=== PATIENT | female | born 1935 | race Caucasian/White ===

== ENCOUNTER 2018-03-10 08:09 | Inpatient (IN) | payer MEDICARE, BC ==
[~2018-03-10] VITALS: Ht 165.1 cm; Wt 78.6 kg
[~2018-03-10 08:09] MED LIST: ASCO500C PO; CALC-77 PO; DESL5TAB PO; DICL100T PO; MELA1TAB SL; MELO15TA23 PO; MULT-18 PO; OMEG-57 PO; POLY255P11 PO
[2018-03-10] MEDS ORDERED: IPRATRPIUM/ALBUTEROL 0.5/2.5MG 3 ML NEBU. NEB ONE (08:30)
[2018-03-10 08:53] LABS: BASO # 0.1 x10^3/uL (0.0-0.2); BASO % 1 % (0-3); EOS # 0.8 x10^3/uL (0.0-0.7); EOS % 9 % (0-3); HEMATOCRIT 36.1 % (36.0-47.0); HEMOGLOBIN 11.6 g/dL (12.0-15.5); LYMPH # 1.6 x10^3/uL (1.0-4.8); LYMPH % 19 % (24-48); MEAN CORPUSCULAR HEMOGLOBIN 28 pg (25-35); MEAN CORPUSCULAR HGB CONC 32 g/dL (31-37); MEAN CORPUSCULAR VOLUME 87 fL (79-100); MONO # 0.9 x10^3/uL (0.0-1.1); MONO % 11 % (0-9); NEUT % 60 % (31-73); PLATELET COUNT 330 x10^3/uL (140-400); RED BLOOD COUNT 4.16 x10^6/uL (3.50-5.40); WHITE BLOOD COUNT 8.5 x10^3/uL (4.0-11.0)
--- NOTE | 2018-03-10 09:03 | PHYS DOC ---
Past History Past Medical History: No Pertinent History Past Surgical History: Hip Replacement, Tonsillectomy Alcohol Use: None Drug Use: None Adult General Chief Complaint Chief Complaint: right-sided chest pain HPI HPI Patient is a 82 year old female with history of recent fall and cervical spine, bilateral upper extremity, reports, pelvis fractures brought in from rehabilitation Center because of right sided chest pain and hypoxia since this morning. Patient had right sided chest tube placement after her fall she had mild pain in right side of her chest but since this morning she had sudden onset of severe pain in right side of her chest that getting worse with movement. Patient complaining of shortness of breath without cough, palpitation , dizziness, fever and chills. Patient rated her pain 8/10. Patient was started on Xarelto yesterday. Patient had O2 sat of 80s at arrival of EMS that improved to 90s with oxygen. Review of Systems Review of Systems Constitutional: Denies fever or chills [] Eyes: Denies change in visual acuity, redness, or eye pain [] HENT: Denies nasal congestion or sore throat [] Respiratory: Denies cough, reports shortness of breath [] Cardiovascular: No additional information not addressed in HPI [] GI: Denies abdominal pain, nausea, vomiting, bloody stools or diarrhea [] : Denies dysuria or hematuria [] Musculoskeletal: Denies back pain or joint pain [] Integument: Denies rash or skin lesions [] Neurologic: Denies headache, focal weakness or sensory changes [] Endocrine: Denies polyuria or polydipsia [] All other systems were reviewed and found to be within normal limits, except as documented in this note. Current Medications Current Medications Current Medications Medications (Trade) Dose Ordered Sig/Willy Start Time Stop Time Status Last Admin Dose Admin Albuterol/ Ipratropium (Duoneb) 3 ml 1X ONCE 03/10/18 08:30 03/10/18 08:31 DC Allergies Allergies Allergies Coded Allergies Type Severity Reaction Last Updated Verified No Known Drug Allergies 03/23/14 No Physical Exam Physical Exam Constitutional: Well developed, well nourished, moderate distress, non-toxic appearance. [] HENT: Normocephalic, atraumatic, oropharynx moist, no oral exudates, nose normal. [] Eyes: PERRLA, EOMI, conjunctiva normal, no discharge. [] Neck: Immobilized by c-collar Cardiovascular:Heart rate regular rhythm, no murmur [] Lungs & Thorax: Right-sided chest wall tenderness without subcutaneous emphysema or ecchymosis, Bilateral breath sounds clear to auscultation [] Abdomen: Bowel sounds normal, soft, no tenderness, no masses, no pulsatile masses. [] Skin: Warm, dry, no erythema, no rash. [] Back: No tenderness, no CVA tenderness. [] Extremities: Bilateral upper extremity with cast and splint, no cyanosis, no clubbing, ROM intact, no edema. [] Neurologic: Alert and oriented X 3, normal motor function, normal sensory function, no focal deficits noted. [] Psychologic: Affect normal, judgement normal, mood normal. [] Current Patient Data Vital Signs Vital Signs Date Time Temp Pulse Resp B/P (MAP) Pulse Ox O2 Delivery O2 Flow Rate FiO2 03/10/18 08:20 97.6 80 24 94 Room Air 2.0 Lab Results Laboratory Tests Test 03/10/18 08:20 White Blood Count 8.5 x10^3/uL (4.0-11.0) Red Blood Count 4.16 x10^6/uL (3.50-5.40) Hemoglobin 11.6 g/dL (12.0-15.5) L Hematocrit 36.1 % (36.0-47.0) Mean Corpuscular Volume 87 fL (79-100) Mean Corpuscular Hemoglobin 28 pg (25-35) Mean Corpuscular Hemoglobin Concent 32 g/dL (31-37) Red Cell Distribution Width 16.0 % (11.5-14.5) H Platelet Count 330 x10^3/uL (140-400) Neutrophils (%) (Auto) 60 % (31-73) Lymphocytes (%) (Auto) 19 % (24-48) L Monocytes (%) (Auto) 11 % (0-9) H Eosinophils (%) (Auto) 9 % (0-3) H Basophils (%) (Auto) 1 % (0-3) Neutrophils # (Auto) 5.0 x10^3uL (1.8-7.7) Lymphocytes # (Auto) 1.6 x10^3/uL (1.0-4.8) Monocytes # (Auto) 0.9 x10^3/uL (0.0-1.1) Eosinophils # (Auto) 0.8 x10^3/uL (0.0-0.7) H Basophils # (Auto) 0.1 x10^3/uL (0.0-0.2) EKG EKG EKG in this present by me. EKG at 0 833 showed normal sinus rhythm at rate of 77 , leftward axis, T wave abnormality in inferior leads, no acute ST and T-wave abnormalities. Radiology/Procedures Radiology/Procedures [address] [address] IMAGING REPORT Signed PATIENT: RENÉE ESPARZA ACCOUNT: [id number] : 1935 LOCATION: ER AGE: 82 SEX: F EXAM STATUS: REG ER ORD. PHYSICIAN: ESTEFANY RANDOLPH MD REASON: shortness of breath PROCEDURE: PORTABLE CHEST 1V PORTABLE CHEST 1V History: Fall in February, fractures, shortness of air today Comparison: June 02, 2013 Findings: AP view of the chest is submitted. There is suboptimal inspiration, low lung volumes. There is hazy bibasilar airspace opacity and probable left base atelectasis. Small bilateral pleural effusions are not excluded. There is no pneumothorax. Pericardial cardiac silhouette is somewhat enlarged. Impression: 1. There is suboptimal inspiration. Small bilateral pleural effusions are not excluded. There is some hazy opacity bilateral lung bases, could be accentuated by poor inspiration, mild edema and/or infiltrates not excluded. There is also likely left base atelectasis Electronically signed by: Fredi Goyal MD (03/10/2018 9:12 AM) [facility] DICTATED AND SIGNED BY: FREDI GOYAL MD DATE: 03/10/18 0901 CC: ESTEFANY RANDOLPH MD; GOVIND NOLASCO MD ~ [address] [address] IMAGING REPORT Signed PATIENT: RENÉE ESPARZA ACCOUNT: [id number] : 1935 LOCATION: ER AGE: 82 SEX: F EXAM STATUS: REG ER ORD. PHYSICIAN: ESTEFANY RANDOLPH MD REASON: hypoxia and recent fracture PROCEDURE: CT ANGIOGRAPHY CHEST Examination: CT angiography chest HISTORY: History of hypoxia TECHNIQUE: Axial CT angiography images were performed with IV contrast. Coronal sagittal 3-D MIP reformats are performed Exposure: One or more of the following individualized dose reduction techniques were utilized for this examination: 1. Automated exposure control 2. Adjustment of the mA and/or kV according to patient size 3. Use of iterative reconstruction technique FINDINGS: There is a 1.1 cm hypodensity identified in the left lobe of the thyroid gland. Moderate cardiomegaly. There is no evidence of filling defect identified in the main pulmonary arterial trunk and right and left main pulmonary arteries. The evaluation of distal segmental branches of the pulmonary arteries is limited. Mild coronary artery calcifications. Moderate right lower lobe lung consolidation with patchy left lung base airspace opacities likely atelectasis or infiltrates. Mild to moderate right-sided pleural effusion. There is mild elevation of the right hemidiaphragm. Moderate aortic atherosclerosis. Moderate degenerative changes thoracic spine. IMPRESSION: 1. No evidence of central pulmonary embolism. 2. Moderate right lower lobe lung consolidation with patchy left lung base airspace opacities likely pneumonia or atelectasis. Follow-up to resolution. 3. Mild to moderate right pleural effusion. 4. Coronary artery calcifications. 5. 1.1 cm hypodensity identified in the left lobe of the thyroid gland. Follow-up nonemergent ultrasound thyroid is recommended. Electronically signed by: Christiano Allison MD (03/10/2018 10:43 AM) [facility] DICTATED AND SIGNED BY: CHRISTIANO ALLISON MD DATE: 03/10/18 1035 CC: ESTEFANY RANDOLPH MD; GOVIND NOLASCO MD ~ Course & Med Decision Making Course & Med Decision Making Pertinent Labs and Imaging studies reviewed. (See chart for details) Evaluation of patient in ER showed 82-year-old female patient with history of multiple fracture and right-sided chest tube placement brought in by EMS because of hypoxia and right-sided chest pain. Patient had O2 sat of 95% on Oxygen at arrival to ER with right-sided chest wall tenderness without subcutaneous emphysema. Patient had unremarkable cardiac enzymes, BMP, white blood cell. Patient had elevation of d-dimer with unremarkable CT of chest for PE. CT of chest showed pleural effusion. After stopping oxygen patient had hypoxia at 88%. Plan discharge patient home with diagnosis of hypoxia and right- sided chest pain. Dr. Nolasco accepted admission at 1058. Dragon Disclaimer Dragon Disclaimer This electronic medical record was generated, in whole or in part, using a voice recognition dictation system. Departure Departure: Impression: Primary Impression: Right-sided chest pain Additional Impressions: Hypoxia History of pelvic fracture Pleural effusion on right History of fall Disposition: ADMITTED INPATIENT (at 11 00) Admitting Physician: Govind Nolasco (Excedrin admission at 1058) Condition: IMPROVED Referrals: GOVIND NOLASCO MD (PCP) Problem Qualifiers ESTEFANY RANDOLPH MD Mar 10, 2018 09:03
[2018-03-10 09:07] LABS: ALBUMIN 3.1 g/dL (3.4-5.0); ALBUMIN/GLOBULIN RATIO 0.8 (1.0-1.7); CREATININE 0.7 mg/dL (0.6-1.0); GFR 80.3; POTASSIUM 4.3 mmol/L (3.5-5.1); TOTAL BILIRUBIN 0.2 mg/dL (0.2-1.0)
--- NOTE | 2018-03-10 09:16 | RAD ---
PORTABLE CHEST 1V History: Fall in February, fractures, shortness of air today Comparison: June 02, 2013 Findings: AP view of the chest is submitted. There is suboptimal inspiration, low lung volumes. There is hazy bibasilar airspace opacity and probable left base atelectasis. Small bilateral pleural effusions are not excluded. There is no pneumothorax. Pericardial cardiac silhouette is somewhat enlarged. Impression: 1. There is suboptimal inspiration. Small bilateral pleural effusions are not excluded. There is some hazy opacity bilateral lung bases, could be accentuated by poor inspiration, mild edema and/or infiltrates not excluded. There is also likely left base atelectasis Electronically signed by: Micha Goyal MD (03/10/2018 9:12 AM) [facility]
[2018-03-10] MEDS ORDERED: MORPHINE SULFATE 4 MG/ML DISP.SYRIN. IV ONE (09:30)
[2018-03-10] MEDS ORDERED: IOHEXOL 300 MG/ML 75 ML VIAL. IV ONE (10:15)
--- NOTE | 2018-03-10 10:47 | RAD ---
Examination: CT angiography chest HISTORY: History of hypoxia TECHNIQUE: Axial CT angiography images were performed with IV contrast. Coronal sagittal 3-D MIP reformats are performed Exposure: One or more of the following individualized dose reduction techniques were utilized for this examination: 1. Automated exposure control 2. Adjustment of the mA and/or kV according to patient size 3. Use of iterative reconstruction technique FINDINGS: There is a 1.1 cm hypodensity identified in the left lobe of the thyroid gland. Moderate cardiomegaly. There is no evidence of filling defect identified in the main pulmonary arterial trunk and right and left main pulmonary arteries. The evaluation of distal segmental branches of the pulmonary arteries is limited. Mild coronary artery calcifications. Moderate right lower lobe lung consolidation with patchy left lung base airspace opacities likely atelectasis or infiltrates. Mild to moderate right-sided pleural effusion. There is mild elevation of the right hemidiaphragm. Moderate aortic atherosclerosis. Moderate degenerative changes thoracic spine. IMPRESSION: 1. No evidence of central pulmonary embolism. 2. Moderate right lower lobe lung consolidation with patchy left lung base airspace opacities likely pneumonia or atelectasis. Follow-up to resolution. 3. Mild to moderate right pleural effusion. 4. Coronary artery calcifications. 5. 1.1 cm hypodensity identified in the left lobe of the thyroid gland. Follow-up nonemergent ultrasound thyroid is recommended. Electronically signed by: Christiano Murphy MD (03/10/2018 10:43 AM) [facility]
--- NOTE | 2018-03-10 13:15 | NUR ---
The patient, RENÉE ESPARZA, 82 y/o, F admitted by STEVE BOSS MD, was given written information regarding hospital policies, unit procedures and contact persons. Valuables were checked and left in room. Patient admitted to room 113 for SOA and rule out possible pneumonia. Spoke with Dr. Boss in regards to patients CT, states he would like to see patient in person prior to starting anything. Patient stable at this time, vitals within normal limits except oxygen saturations remain at 84% on room air. 2L NC applied and sats increased to 92%. Spoke with brigette patterson for current medication list. Family aware of arrival to hospital. Patient able to make needs known, call light within reach will continue to monitor.
[2018-03-10 13:16] VITALS: BP 155/60
[2018-03-10] MEDS ORDERED: TRAZ-85 PO (14:09)
[2018-03-10] MEDS ORDERED: MELA3TAB2 PO (14:09)
[2018-03-10] MEDS ORDERED: ACET325T9 PO (14:09)
[2018-03-10] MEDS ORDERED: DICL100G18 TP (14:09)
[2018-03-10] MEDS ORDERED: OXYC5TAB4 PO ×2 (14:09→14:15)
[2018-03-10] MEDS ORDERED: TUMERIC ROOT PO (14:15)
[2018-03-10] MEDS ORDERED: SENN1TAB29 PO (14:15)
[2018-03-10] MEDS ORDERED: AMLO10TA6 PO (14:15)
[2018-03-10] MEDS ORDERED: GABA-585 PO (14:15)
[2018-03-10] MEDS ORDERED: RIVA10TA PO (14:15)
[2018-03-10] MEDS ORDERED: LIDO700A39 TP (14:15)
[2018-03-10] MEDS ORDERED: METH-38 PO (14:15)
[2018-03-10] MEDS ORDERED: OXYC10TA46 PO (14:15)
--- NOTE | 2018-03-10 15:22 | NUR ---
Doctor bandar notified of sepsis, vanco and anneliese ordered.
[2018-03-10] MEDS ORDERED: ACETAMINOPHEN 325 MG TABLET PO PRN (15:30)
[2018-03-10] MEDS ORDERED: oxyCODONE IR 5 MG TABLET PO PRN (15:30)
[2018-03-10] MEDS ORDERED: VANCOMYCIN PER PHARMACY MC PRN (15:30)
[2018-03-10] MEDS ORDERED: DICLOFENAC SODIUM 1% TOPICAL GEL 100GM TUBE. TP PRN (15:30)
[2018-03-10] MEDS: oxyCODONE IR 5 MG TABLET PO PRN ×2 (15:43→18:26)
[2018-03-10 16:30] VITALS: BP 164/69
[2018-03-10] MEDS ORDERED: VANCOMYCIN 2 GM in IV NORMAL SALINE 500ML 500 ML IV ONE (16:30)
[2018-03-10] MEDS: PIPERACILLIN/TAZOBACTAM 3.375 GM in IV NORMAL SALINE 50ML 50 ML IV SCH ×2 (16:31→22:26)
--- NOTE | 2018-03-10 16:45 | HP ---
ADMIT DATE: 03/10/2018 HISTORY OF PRESENT ILLNESS: The patient is an 82-year-old female patient, a resident at [facility], who was seen this morning as the nursing staff were concerned that the patient is having chest pain and she was also complaining of severe right-sided chest pain and was noted to be hypoxic. Therefore, a decision was made to transfer her to the Emergency Room of [facility] where she was evaluated and was found to have on the CT angio of the chest to have moderate right lower lobe lung consolidation with patchy left lung airspace opacities, likely atelectasis or infiltrate, mild to moderate right-sided pleural effusion. There is right mild elevation of her right hemidiaphragm; however, there is no evidence of filling defects identified in the main pulmonary arterial trunk and right and left main pulmonary arteries. The evaluation of distal segmental branches of the pulmonary arteries is limited. She has mild coronary artery calcification. The patient was admitted and was with the diagnosis of healthcare-associated pneumonia, was started on IV antibiotic in the form of vancomycin and Zosyn. PAST MEDICAL HISTORY: Significant for multiple fractures after a fall from a flight of stairs sustaining a bilateral forearm fracture, and also pelvic fracture. She is also known to have essential hypertension as well as hyperlipidemia, although the patient herself said she has never been diagnosed with hypertension or treated for that. PAST SURGICAL HISTORY: Unremarkable. ALLERGIES: She has no known drug allergies. MEDICATIONS: She is currently on following medications: She is on Clarinex 5 mg daily, methocarbamol 750 mg twice a day, rivaroxaban 10 mg daily, amlodipine besylate 10 mg daily, diclofenac sodium 1 gram topically every 4 hours as needed, oxycodone 5 mg every 4 hours and OxyContin 10 mg twice a day. She is also on oxycodone 10 mg every 4 hours as needed for pain rated 5-10. She is on Tylenol 650 mg every 4 hours, gabapentin 200 mg every 8 hours, trazodone 50 mg once a day, calcium carbonate with vitamin D3 once a day, polyethylene glycol 17 grams twice a day, Senna-S 1 capsule twice a day, Lidoderm patch topically daily, ascorbic acid 500 mg daily, multivitamin 1 tablet once a day, melatonin 5 mg at bedtime, turmeric root 500 mg daily. FAMILY HISTORY: Noncontributory. SOCIAL HISTORY: She is , lives on her own. She does not smoke, drink alcohol or use any recreational drugs. REVIEW OF SYSTEMS: As per history of present illness. PHYSICAL EXAMINATION: GENERAL: On arrival to the Emergency Room, the patient was slightly tachypneic, pale, no jaundice, cyanosis, or thyromegaly. No jugular venous distension. No limb edema. VITAL SIGNS: She was actually hypoxic with oxygen saturation of 80% on arrival to the Emergency Room. Her heart rate was 80, blood pressure was 155/60, temperature was 97.6, respiratory rate 24 and oxygen saturation has increased to 94% at 2 liters of oxygen. HEAD, EYES, EARS, NOSE, AND THROAT: Showed normocephalic, atraumatic. NECK: Supple. HEART: Showed normal first and second sounds. No gallop, rub or murmur. CHEST: Shows central trachea, equal bilateral expansion, air entry, vesicular sounds with no crepitation or rhonchi. Anteriorly, she has dull percussion noted and absent breath sounds and crepitation on the right side posteriorly. ABDOMEN: Distended, soft, nontender. NEUROLOGIC: She is awake, alert, responding appropriately. All cranial are intact. EXTREMITIES: She moves her upper extremity without difficulty. Both forearms are in wrist splint. She is mostly bed bound. She is nonweightbearing on her right side. LABORATORY DATA: On arrival showed a white cell count of 8500, hemoglobin 11.6, hematocrit 36, MCV 87 and platelet count of 330,000 with normal manual differential. Her chemistry showed a serum sodium 140, potassium 4.3, chloride 99, bicarbonate 31, anion gap of 10, BUN 15, creatinine 0.7, estimated GFR was 80 mL per minute. Her glucose is 117. Lactic acid is 1.8, calcium was 9. Total bilirubin, AST, ALT were normal. Alkaline phosphatase slightly elevated. Her troponin was less than 0.017. Beta natriuretic peptide was 116. Total protein was 7, albumin 3.1. Her D-dimer was 2.17. While in the Emergency Room, she has had a chest x-ray, which showed that there is suboptimal inspiration, small bilateral pleural effusions are not excluded. There is some hazy opacity bilateral lung bases, could be accentuated by poor inspiration, mild edema and/or infiltrate not excluded. There is also likely left base atelectasis. CT angio of the chest was then given high D-dimer, showed that there is a 1.1 cm hyperdensity identified in the left lower thyroid gland, moderate cardiomegaly. There is no evidence of filling defects identified in the main pulmonary arterial trunk and right and left main pulmonary arteries. The evaluation of the distal segmental branches of the pulmonary arteries is limited. There is mild coronary artery calcification. There is moderate right lower lobe lung consolidation with patchy lung airspace opacities, likely atelectasis or infiltrate. ASSESSMENT AND PLAN: The patient was admitted with diagnosis of healthcare-associated pneumonia. We will continue with IV antibiotic in the form of vancomycin and Zosyn. OTHER MEDICAL PROBLEMS: Include: A. Hypertension. B. Hyperlipidemia. C. She has multiple fractures including both right ulna and right radius as well as multiple fractures of the pelvis, stable without disruption of the pelvic ring. She has also sixth cervical spine fracture, right-sided rib fractures and contusion of the lung as well as left wrist fracture. We will continue with the pain medication. Continue with deep venous thrombosis prophylaxis and will also continue the physical and occupational therapy and she has also a cervical collar in place. STEVE BOSS MD DR: SHANTA/robert JOB#: [id number] / [id number]
--- NOTE | 2018-03-10 17:34 | EKG ---
[address] [address] Test Date: 2018-03-10 Test Time: 08:33:16 Pat Name: RENÉE ESPARZA Department: Room: 113 A Gender: F Guidance Services Coordinator: KACEY : 1935 Requested By: ESTEFANY RANDOLPH Order Number: [id number] Reading MD: Geraldo Schaefer Measurements Intervals [place] Rate: 77 P: 13 [place]: 194 QRS: -20 QRSD: 80 T: -7 QT: 354 QTc: 402 Interpretive Statements SINUS RHYTHM LEFTWARD AXIS R-S TRANSITION ZONE IN V LEADS DISPLACED TO THE LEFT T ABNORMALITY IN INFERIOR LEADS ABNORMAL ECG RI6.01 Unconfirmed report No previous ECG available for comparison Electronically Signed On 03-17-2018 10:42:06 PIPE BENDING MACHINE OPERATOR by Geraldo Schaefer
[2018-03-10 19:57] VITALS: BP 155/73
--- NOTE | 2018-03-10 19:59 | NUR ---
Pharmacy Vancomycin Dosing Note S:Consulted to monitor and dose vancomycin started 03/10/18. O:RENÉE ESPARZA is a 82 year old F with Sepsis Pneumonia . Height: 5 feet, 5 inches Weight: 78.184159 kg [place] Body Weight: Adjusted Body Weight: Dosing Weight: Other Antibiotics: ZOSYN 3.375GM Q8HRS LABS: Last BUN: 21 Last Creatinine: 0.7 Creatinine Clearance: Last WBC: 8.5 Last Platelets: 330 Tmax (past 24 hours): Microbiology: I/O: Drug Levels: Last level: on at Last dose given 03/10/18 at 1820 Vancomycin Dosing: Loading Dose: 2000 mg x1 Dosing Weight: Target Trough: 15-20 A: Based on: P: 1. Begin Vancomycin 1250 mg IV q24h 2. Follow up Trough level on 03/12/18 at 1800 3. Pharmacy will continue to monitor, follow and adjust therapy as needed. ALLAN ESPARZA RPH, 03/10/18 1959
[2018-03-10] MEDS ORDERED: LACTOBACILLUS RHAMNOSUS GG 1 CAPSULE. PO SCH (21:00)
[2018-03-10] MEDS: POLYETHYLENE GLYCOL 3350 17 GM PACKET. PO SCH (21:23)
[2018-03-10] MEDS: traZODone 50 MG TABLET. PO SCH (21:26)
[2018-03-10] MEDS: METHOCARBAMOL 500 MG TABLET PO SCH (21:26)
[2018-03-10] MEDS: oxyCODONE ER 10 MG TAB.ER.12H PO SCH (21:27)
[2018-03-10] MEDS: MELATONIN 3 MG TABLET PO SCH (21:27)
[2018-03-10] MEDS: LACTOBACILLUS RHAMNOSUS GG 1 CAPSULE. PO SCH (21:27)
[2018-03-10] MEDS: SENNOSIDES/DOCUSATE 8.6/50MG TABLET. PO SCH (21:27)
[2018-03-10] MEDS: GABAPENTIN 100 MG CAPSULE. PO SCH (22:25)
[2018-03-10 23:00] VITALS: BP 159/69
[2018-03-11] MEDS: GABAPENTIN 100 MG CAPSULE. PO SCH ×3 (05:59→22:27)
[2018-03-11] MEDS: PIPERACILLIN/TAZOBACTAM 3.375 GM in IV NORMAL SALINE 50ML 50 ML IV SCH ×3 (05:59→22:27)
[2018-03-11 06:27] VITALS: BP 150/61
[2018-03-11] MEDS: oxyCODONE ER 10 MG TAB.ER.12H PO SCH ×2 (08:24→20:08)
[2018-03-11] MEDS: POLYETHYLENE GLYCOL 3350 17 GM PACKET. PO SCH ×2 (08:24→20:07)
[2018-03-11] MEDS: RIVAROXABAN 10 MG TABLET. PO SCH (08:24)
[2018-03-11] MEDS: MULTIVITAMIN with MINERAL TABLET. PO SCH (08:24)
[2018-03-11] MEDS: ASCORBIC ACID 500 MG TABLET PO SCH (08:24)
[2018-03-11] MEDS: SENNOSIDES/DOCUSATE 8.6/50MG TABLET. PO SCH ×2 (08:24→20:07)
[2018-03-11] MEDS: LACTOBACILLUS RHAMNOSUS GG 1 CAPSULE. PO SCH ×2 (08:24→20:07)
[2018-03-11] MEDS: CETIRIZINE HCL 10 MG TABLET PO SCH (08:25)
[2018-03-11] MEDS: amLODIPine BESYLATE 10 MG TABLET PO SCH (08:25)
[2018-03-11] MEDS: LIDOCAINE (700MG/PATCH) PATCH. TD SCH (08:25)
[2018-03-11] MEDS: METHOCARBAMOL 500 MG TABLET PO SCH ×2 (08:25→20:07)
[2018-03-11] MEDS ORDERED: TURMERIC 500 MG PO SCH (09:00)
[2018-03-11 10:17] VITALS: BP 130/75
--- NOTE | 2018-03-11 10:50 | NUR ---
new C collar applied, spoke with brigette patterson and they stated patient is to wear collar until she sees spine center on March 26. Patient doing better today, sitting up in chair visiting with friends. States that pain is under control today as well.
[2018-03-11] MEDS: oxyCODONE IR 5 MG TABLET PO PRN (11:57)
[2018-03-11 15:18] VITALS: BP 146/68
[2018-03-11] MEDS ORDERED: VANCOMYCIN 1.25 GM in IV NORMAL SALINE 250ML 250 ML IV SCH (18:30)
[2018-03-11 18:40] VITALS: BP 135/68
[2018-03-11] MEDS: traZODone 50 MG TABLET. PO SCH (20:06)
[2018-03-11] MEDS: MELATONIN 3 MG TABLET PO SCH (20:07)
[2018-03-11 23:30] VITALS: BP 126/53
--- NOTE | 2018-03-11 23:33 | PN ---
DATE: 03/11/2018 SUBJECTIVE: The patient is resting slightly propped up in bed, in no apparent respiratory distress. She has been tearful according to nursing staff, and we did consult Dr. Sargent to assist with her depression and anxiety. She continued to have complaint of right-sided chest pain when she takes a deep breath and she is already on IV antibiotic in the form of vancomycin and Zosyn. OBJECTIVE: GENERAL: When I examined her today, she looked pale, but no jaundice, cyanosis, or thyromegaly. No jugular venous distension. No limb edema. VITAL SIGNS: His heart rate was 86, blood pressure was 130/75, temperature was 98.5, respiratory rate 20, and oxygen saturation was 92% on 2 liters of oxygen by nasal cannula. HEAD, EYES, EARS, NOSE AND THROAT: Showed normocephalic, atraumatic. NECK: Supple, with a cervical collar in place. HEART: Showed normal first and second heart sounds. No gallop, rub or murmur. CHEST: Clear to auscultation. No crepitation or rhonchi. ABDOMEN: Slightly distended, soft, nontender. No guarding or rigidity. No organomegaly. Hernial orifice intact. Bowel sounds normal. NEUROLOGIC: She was awake, alert, responding appropriately. Cranial nerves intact. She moves upper extremities without difficulty. She is able to feed herself. She actually managed to sit in the chair today. Her intake and output were incompletely recorded LABORATORY DATA: No lab work was ordered today. Yesterday, her white cell count was 8500, hemoglobin 11.6, hematocrit 36, MCV 87, and platelet count of 330,000. Her serum sodium 140, potassium 4.3, chloride 99, bicarbonate 31, anion gap of 10, BUN 15, and creatinine 0.7. ASSESSMENT: 1. Healthcare-associated pneumonia for which she is now on vancomycin and Zosyn. 2. Hypertension. 3. Hyperlipidemia. 4. She has fallen from a flight of stairs and has multiple fractures including both right ulna and right radius as well as left ulna and left radius, multiple fractures of the pelvis, stable without disruption of the pelvic ring. She also has sixth cervical spine fracture, right-sided rib fractures, contusion of the lung as well as left wrist fracture. PLAN: Continue with DVT prophylaxis. Continue with pain management. Continue with physical and occupational therapy. Continue with cervical collar in place. Continue with IV antibiotic. STEVE BOSS MD DR: SHANTA/rboert JOB#: [id number] / [id number]
[2018-03-12] MEDS: GABAPENTIN 100 MG CAPSULE. PO SCH ×3 (06:05→21:07)
[2018-03-12] MEDS: PIPERACILLIN/TAZOBACTAM 3.375 GM in IV NORMAL SALINE 50ML 50 ML IV SCH ×3 (06:05→21:09)
[2018-03-12 06:30] LABS: HEMOGLOBIN 10.2 g/dL (12.0-15.5); RED BLOOD COUNT 3.59 x10^6/uL (3.50-5.40); RED CELL DISTRIBUTION WIDTH 15.4 % (11.5-14.5)
[2018-03-12 06:46] LABS: ALBUMIN 2.5 g/dL (3.4-5.0); ALBUMIN/GLOBULIN RATIO 0.6 (1.0-1.7); CALCIUM 8.8 mg/dL (8.5-10.1); CREATININE 0.7 mg/dL (0.6-1.0); GFR 80.3; POTASSIUM 3.9 mmol/L (3.5-5.1); TOTAL BILIRUBIN 0.3 mg/dL (0.2-1.0); TOTAL PROTEIN 6.4 g/dL (6.4-8.2)
[2018-03-12 07:49] VITALS: BP 130/65
[2018-03-12] MEDS: LIDOCAINE (700MG/PATCH) PATCH. TD SCH (08:52)
[2018-03-12] MEDS: ASCORBIC ACID 500 MG TABLET PO SCH (08:53)
[2018-03-12] MEDS: MULTIVITAMIN with MINERAL TABLET. PO SCH (08:53)
[2018-03-12] MEDS: LACTOBACILLUS RHAMNOSUS GG 1 CAPSULE. PO SCH ×2 (08:53→21:06)
[2018-03-12] MEDS: METHOCARBAMOL 500 MG TABLET PO SCH ×2 (08:53→21:08)
[2018-03-12] MEDS: amLODIPine BESYLATE 10 MG TABLET PO SCH (08:54)
[2018-03-12] MEDS: oxyCODONE IR 5 MG TABLET PO PRN ×3 (08:54→15:57)
[2018-03-12] MEDS: CETIRIZINE HCL 10 MG TABLET PO SCH (08:54)
[2018-03-12] MEDS: oxyCODONE ER 10 MG TAB.ER.12H PO SCH ×2 (08:54→21:08)
[2018-03-12] MEDS: SENNOSIDES/DOCUSATE 8.6/50MG TABLET. PO SCH ×2 (08:54→21:07)
[2018-03-12] MEDS: RIVAROXABAN 10 MG TABLET. PO SCH (08:54)
[2018-03-12] MEDS: POLYETHYLENE GLYCOL 3350 17 GM PACKET. PO SCH ×2 (09:00→21:06)
[2018-03-12 10:46] VITALS: BP 131/53
--- NOTE | 2018-03-12 10:47 | NUR ---
Pt alert and oriented x4. Bed low and locked. Pt had large soft BM. Dressing changed on left wrist. Lidocaine patch applied to left back. Pt rolls side to side well. Will continue to monitor.
[2018-03-12 15:28] VITALS: BP 134/67
[2018-03-12 20:24] VITALS: BP 157/79
[2018-03-12] MEDS: MELATONIN 3 MG TABLET PO SCH (21:07)
[2018-03-12] MEDS: traZODone 50 MG TABLET. PO SCH (21:08)
[2018-03-12 23:15] VITALS: BP 122/68
--- NOTE | 2018-03-12 23:29 | PN ---
DATE: 03/12/2018 SUBJECTIVE: The patient is resting, slightly propped up in bed, in no apparent distress. She is generally feeling much improved. She continued to have some chest pain, cough with scanty sputum. She is using incentive spirometry and this helping her. She is afebrile. PHYSICAL EXAMINATION: GENERAL: When I examined her, she looked well and was clearly in no apparent respiratory distress, slightly pale, no jaundice, cyanosis, or thyromegaly. No jugular venous distention. No limb edema. VITAL SIGNS: Her heart rate was 78, blood pressure was 134/67, temperature was 98, respiratory rate was 18, and oxygen saturation was 92% on 2 liters of oxygen. HEENT: Examination of the head, eyes, ears, nose and throat showed normocephalic, atraumatic. NECK: Supple with a cervical collar in place. HEART: Showed normal first and second heart sounds with no gallop, rub or murmur. CHEST: Clear to auscultation. No crepitation or rhonchi. ABDOMEN: Distended, soft, nontender. NEUROLOGIC: She is awake, alert, responding appropriately. Her cranial nerves are intact. EXTREMITIES: She moves her upper extremities to much good extent than the lower extremities. She is mostly bed bound. Her intake was 800. No output was recorded. LABORATORY DATA AND IMAGING STUDIES: Lab work this morning showed a white cell count 7000, hemoglobin 10, hematocrit 31, MCV 86 and platelet count 271,000. Serum sodium was 140, potassium 3.9, chloride 103, bicarbonate 32, anion gap of 5, BUN 10, creatinine 0.7, estimated GFR was 80 mL per minute. Her glucose was 97. Calcium was 8.8. Total bilirubin, AST, ALT were normal. Alkaline phosphatase was 132. Her total protein was 6.4, albumin 2.5. Her nasal screen for MRSA by PCR was negative. Her D-dimer was high at 2.17. However, the CT angio of the chest showed no evidence of pulmonary emboli. ASSESSMENT: 1. Healthcare-associated pneumonia, for which we continued on Zosyn. I discontinued the vancomycin. Her blood culture is negative for more than 48 hours now. 2. Hypertension. 3. Hyperlipidemia. 4. Fall with multiple fractures. PLAN: Plan is to continue with IV Zosyn, continue with DVT prophylaxis. Continue with pain management. Continue with the cervical collar in place. We will consult our social media sr strategy manager to see whether she qualifies for swing bed status. STEVE BOSS MD DR: SHANTA/robert JOB#: [id number] / [id number]
[2018-03-13 05:15] VITALS: BP 151/67
[2018-03-13] MEDS: PIPERACILLIN/TAZOBACTAM 3.375 GM in IV NORMAL SALINE 50ML 50 ML IV SCH ×2 (05:47→14:26)
[2018-03-13] MEDS: GABAPENTIN 100 MG CAPSULE. PO SCH ×2 (05:48→14:25)
[2018-03-13] MEDS: oxyCODONE IR 5 MG TABLET PO PRN ×2 (05:48→16:26)
[2018-03-13 06:31] LABS: CALCIUM 8.9 mg/dL (8.5-10.1); CREATININE 0.7 mg/dL (0.6-1.0); GFR 80.3; POTASSIUM 3.7 mmol/L (3.5-5.1)
[2018-03-13] MEDS: POLYETHYLENE GLYCOL 3350 17 GM PACKET. PO SCH (09:00)
[2018-03-13] MEDS: SENNOSIDES/DOCUSATE 8.6/50MG TABLET. PO SCH (10:03)
[2018-03-13] MEDS: LIDOCAINE (700MG/PATCH) PATCH. TD SCH (10:03)
[2018-03-13] MEDS: amLODIPine BESYLATE 10 MG TABLET PO SCH (10:03)
[2018-03-13] MEDS: CETIRIZINE HCL 10 MG TABLET PO SCH (10:03)
[2018-03-13] MEDS: ASCORBIC ACID 500 MG TABLET PO SCH (10:04)
[2018-03-13] MEDS: MULTIVITAMIN with MINERAL TABLET. PO SCH (10:04)
[2018-03-13] MEDS: LACTOBACILLUS RHAMNOSUS GG 1 CAPSULE. PO SCH (10:05)
[2018-03-13] MEDS: METHOCARBAMOL 500 MG TABLET PO SCH (10:05)
[2018-03-13] MEDS: RIVAROXABAN 10 MG TABLET. PO SCH (10:05)
[2018-03-13] MEDS: oxyCODONE ER 10 MG TAB.ER.12H PO SCH (10:05)
[2018-03-13 10:52] VITALS: BP 122/57
[2018-03-13] MEDS ORDERED: AMOX1TAB61 PO (14:48)
[2018-03-13 15:41] VITALS: BP 139/65
--- NOTE | 2018-03-13 18:00 | NUR ---
Discharge Note: RENÉE ESPARZA J1 [facility] Discharge instructions and discharge home medications reviewed with Rosario Tyndall nurse, and a copy given. All questions have been answered and understanding verbalized. The following instructions and handouts were given: medications, labs, imaging, activity, diet, and plan of care. Discontinued lines and drains: peripheral IV discontinued with no complications. Patient discharged to [facility] via [facility].
--- NOTE | 2018-03-13 19:11 | DS ---
DATE OF DISCHARGE: 03/13/2018 HOSPITAL COURSE: The patient is an 82-year-old female patient, who was a resident at [facility], who was brought to the Emergency Room with a complaint of right-sided chest pain, shortness of breath and hypoxia, who was diagnosed with healthcare-associated pneumonia, was started on IV vancomycin and Zosyn. Her blood cultures have been negative after 3 days, and therefore, her vancomycin was discontinued. As the patient remained afebrile, hemodynamically stable with normal white cell count, a decision was made to transfer her back to [facility] to continue on oral Augmentin. PHYSICAL EXAMINATION: GENERAL: When I examined her today, she looked well and was clearly in no apparent respiratory distress. No pallor, jaundice, cyanosis or thyromegaly. No jugular venous distension. No limb edema. VITAL SIGNS: Her heart rate was 78, blood pressure 122/57, temperature was 97.7, respiratory rate was 18, and oxygen saturation was 92%. HEAD, EYES, EARS, NOSE AND THROAT: Showed normocephalic, atraumatic. NECK: Supple with a cervical collar in place. HEART: Showed normal first and second sounds. No gallop, rub or murmur. CHEST: Clear to auscultation. No crepitation or rhonchi. ABDOMEN: Distended, soft, nontender. NEUROLOGIC: She is awake, alert, responding appropriately. All cranial nerves intact. EXTREMITIES: She is able to move her upper extremities to a great extent than lower extremities that she is on nonweightbearing. She has multiple bilateral forearm fractures and also pelvic fracture. She is still nonweightbearing. LABORATORY DATA: Showed her white cell count to be 7000, hemoglobin 10, hematocrit 31, MCV 86, and platelet count 271,000. Her chemistry showed a serum sodium 140, potassium 3.7, chloride 102, bicarbonate 31, anion gap of 7, BUN 11, creatinine 0.7, estimated GFR was 80 mL per minute. Her glucose was 95, calcium was 8.9. Her prothrombin time was 2.17. DIAGNOSTIC DATA: Her chest x-ray showed that she has small bilateral pleural effusions on that. There is some hazy opacity. Bilateral lung bases could be accentuated by poor inspiration, mild edema and infiltrate not excluded. She did have a CT angio of the chest, which showed that the patient has moderate right lower lobe lung consolidation with patchy left lung base airspace opacities, likely atelectasis or infiltrate, mild to moderate right-sided pleural effusion. There is mild elevation of the right hemidiaphragm whether it aortic atherosclerosis, moderate degenerative changes of thoracic spine. DISCHARGE MEDICATIONS: She was treated for healthcare-associated pneumonia and was discharged home to continue on amoxicillin/potassium clavulanate 875/125 one tablet twice a day with food for 7 days. Should continue all her other medications including Tylenol 650 mg every 4 hours, amlodipine 10 mg once a day, ascorbic acid 500 mg daily, calcium with vitamin D one tablet once a day, Clarinex 1 tablet once a day, diclofenac sodium for Voltaren gel 1 gram topically q.4 hourly, gabapentin 200 mg q. 8 hourly, Lidoderm patch topically once a day, melatonin 5 mg at bedtime, methocarbamol for Robaxin 750 mg b.i.d., multivitamin 1 tablet once a day, oxycodone 5 mg every 4 hours, oxycodone 10 mg every 4 hours as needed for pain rated 6-10. She is also on OxyContin 10 mg twice a day, polyethylene glycol 17 grams twice a day, rivaroxaban 10 mg once a day, Senna-S 1 tablet twice a day, trazodone 50 mg at bedtime and turmeric root 500 mg daily. FINAL DISCHARGE DIAGNOSES: 1. Healthcare-associated pneumonia, treated with Zosyn, vancomycin; was discharged to complete the course of treatment in the form of Augmentin. 2. Hypertension. 3. Hyperlipidemia. 4. Fall with multiple fractures. The patient continues to be nonweightbearing. 5. For deep vein thrombosis prophylaxis, she continued to be on Xarelto. STEVE BOSS MD DR: SHANTA/robert JOB#: [id number] / [id number]
== END 2018-03-13 17:55 | DRG 194 ==
LOC: ER 08:09 → 1 SOUTH 11:00
PROVIDERS: ADMIT Internal Medicine; ATTEND Internal Medicine
DX: J18.9 Pneumonia, unspecified organism (principal); S32.9XXA Fracture of unspecified parts of lumbosacral spine and pelvis, initial encounter for closed fracture; S22.41XA Multiple fractures of ribs, right side, initial encounter for closed fracture; J90 Pleural effusion, not elsewhere classified; J98.11 Atelectasis; E78.5 Hyperlipidemia, unspecified; F32.9 Major depressive disorder, single episode, unspecified; F41.9 Anxiety disorder, unspecified; I10 Essential (primary) hypertension; I25.10 Atherosclerotic heart disease of native coronary artery without angina pectoris; R09.02 Hypoxemia; Y95 Nosocomial condition; Z91.81 History of falling; Z96.649 Presence of unspecified artificial hip joint
CPT/HCPCS: 36415; 71045; 71275; 80048; 80053; 82550; 83605; 83880; 84484; 85025; 85027; 85379; 87040; 87641; 93005; 94640; 96374; 97163; G0238; J2270; J2543; J3370; J7040; J7050; J7620; Q9967; 97110; 97530; 97535; 99285-25

== ENCOUNTER → 2018-05-27 | Outpatient (CLI) | payer MEDICARE, BC ==
[~2018-05-27] MED LIST changes: +ACET325T9 PO; +AMLO10TA8 PO; +AMOX1TAB61 PO; +DICL100G18 TP; +GABA-585 PO; +LIDO700A39 TP; +MELA3TAB2 PO; +METH-38 PO; +OXYC10TA46 PO; +OXYC5TAB4 PO; +RIVA10TA PO; +SENN1TAB29 PO; +TRAZ-120 PO; +TUMERIC ROOT PO
--- NOTE | 2018-05-27 15:46 | RAD ---
Ultrasound of the left wrist HISTORY: Evaluate flexor carpi radialis tendon. Left wrist fracture with internal fixation. TECHNIQUE: Ultrasound performed flexor carpi radialis tendon. FINDINGS: The images are interpreted without the benefit of real-time scanning or observation. The flexor carpi radialis tendon is visualized and demonstrates homogeneous architecture and normal size. Tendon appears intact. No abnormal tendon sheath fluid or fluid collection is identified. Note that the relationship of the tendon with the underlying surgical hardware cannot be determined. IMPRESSION: Flexor carpi radialis tendon is visualized and appears sonographically intact. Electronically signed by: Jem Lin MD (05/27/2018 3:43 PM) [id number]
== END | disposition home or self-care (01) ==
LOC: US 12:33
PROVIDERS: ATTEND Orthopaedic Surgery
DX: M25.532 Pain in left wrist (principal)
CPT/HCPCS: 76881